=== PATIENT | male | born 1990 | race Caucasian/White ===

== ENCOUNTER 2020-09-09 05:58 | Emergency (ER) | payer MEDICAID ==
[2020-09-10] MEDS ORDERED: NO HOME MEDS (17:32)
== END 2020-09-09 06:32 | disposition left against medical advice (07) ==
LOC: ER 06:00
DX: I10 Essential (primary) hypertension (principal); Z53.21 Procedure and treatment not carried out due to patient leaving prior to being seen by health care provider

== ENCOUNTER 2020-09-10 15:29 | Emergency (ER) | payer MEDICAID ==
[~2020-09-10] VITALS: Ht 180.3 cm; Wt 100.0 kg
[2020-09-10] MEDS ORDERED: diphenhydrAMINE 50 mg/ml inj IM ONE (15:45)
[2020-09-10] MEDS ORDERED: LORazepam 2 mg/ml vial IM ONE (15:45)
[2020-09-10] MEDS ORDERED: OLANZapine **IM** 10 mg inj. IM ONE (15:45)
[2020-09-10] MEDS ORDERED: normal saline 1000ML IV soln IVB ONE (15:45)
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
[2020-09-10 16:44] LABS: BASOPHILS # (AUTO) 0.1 X10'3 (0-0.2); BASOPHILS % (AUTO) 0.8 % (0-1); EOSINOPHILS # (AUTO) 0.1 X10'3 (0-0.9); EOSINOPHILS % (AUTO) 1.5 % (0-6); HEMATOCRIT 37.5 % (42.0-52.0); HEMOGLOBIN 12.7 g/dl (14.0-17.9); LYMPHOCYTES # (AUTO) 1.2 X10'3 (1.1-4.8); LYMPHOCYTES % (AUTO) 11.8 % (21-51); MEAN CORPUSCULAR HEMOGLOBIN 29.8 PG (27.0-31.0); MEAN CORPUSCULAR HGB CONC 33.8 g/dL (33.0-36.5); MEAN CORPUSCULAR VOLUME 87.9 FL (78-98); MEAN PLATELET VOLUME 7.9 FL (7.4-10.4); MONOCYTES # (AUTO) 0.9 X10'3 (0-0.9); MONOCYTES % (AUTO) 9.5 % (2-12); NEUTROPHILS # (AUTO) 7.6 X10'3 (1.8-7.7); NEUTROPHILS % (AUTO) 76.4 % (42-75); PLATELET COUNT 259 X10'3 (140-440); RED BLOOD COUNT 4.26 X10'6 (4.70-6.10); RED CELL DISTRIBUTION WIDTH 13.8 % (11.5-14.5); WHITE BLOOD COUNT 9.9 X10'3 (4.5-11.0)
--- NOTE | 2020-09-10 16:58 | NUR ---
PT IS SLEEPING ON THE GURNEY AFTER GETTING AN IV PLACED FOR FLUID ADMINISTRATION.
[2020-09-10 16:59] LABS: ALANINE AMINOTRANSFERASE 83 U/L (12-78); ALBUMIN 3.5 G/DL (3.4-5.0); ALBUMIN/GLOBULIN RATIO 1.1 (1.1-1.5); ALKALINE PHOSPHATASE 75 IU/L (46-116); ANION GAP 9 (8-16); ASPARTATE AMINO TRANSFERASE 78 U/L (10-37); BILIRUBIN,TOTAL 0.4 MG/DL (0.1-1.0); BLOOD UREA NITROGEN 32 MG/DL (7-18); BUN/CREATININE RATIO 34.4 (5.4-32.0); CALCIUM 8.5 MG/DL (8.5-10.1); CHLORIDE 104 MMOL/L (99-107); CREATININE 0.93 MG/DL (0.60-1.10); ETHANOL < 0.010 GM/DL (0.0-0.010); GLUCOSE 118 MG/DL (70-104); POTASSIUM 3.4 MMOL/L (3.5-5.1); SODIUM 141 MMOL/L (135-145); TOTAL CARBON DIOXIDE 27.7 MMOL/L (24-32); TOTAL PROTEIN 6.6 G/DL (6.4-8.2); eGFR > 90 ML/MIN
--- NOTE | 2020-09-10 17:27 | NUR ---
Pt taken by [facility] from ER 13, to ER overflow bed 26
[2020-09-10] MEDS ORDERED: NO HOME MEDS (17:32)
[2020-09-10 18:52] LABS: URINE AMPHETAMINE SCREEN NEGATIVE (Neg); URINE BARBITUATE SCREEN NEGATIVE (Neg); URINE BENZODIAZEPINES SCREEN NEGATIVE (Neg); URINE CANNABINOID SCREEN NEGATIVE (Neg); URINE COCAINE SCREEN NEGATIVE (Neg); URINE METHADONE SCREEN NEGATIVE (Neg); URINE OPIATE SCREEN NEGATIVE (Neg); URINE PHENCYCLIDINE SCREEN NEGATIVE (Neg)
[2020-09-10 18:55] LABS: CLARITY,URINE CLEAR (Clear); COLOR,URINE YELLOW (Yellow); GLUCOSE, URINE NEGATIVE (Neg); KETONES,URINE 15 mg/dl (Neg); LEUKOCYTE ESTERASE ,URINE NEGATIVE (Neg); NITRITES, URINE NEGATIVE (Neg); OCCULT BLOOD,URINE NEGATIVE (Neg); PROTEIN,URINE NEGATIVE (Neg); UROBILINOGEN,URINE 0.2 E.U/dL (0.2-1.0)
[2020-09-10 18:57] LABS: UA COLLECTION TYPE CLN CATCH MIDSTREAM
--- NOTE | 2020-09-10 19:00 | NUR ---
pt is sleeping, no s/s of distress noted. rr unlabored.
--- NOTE | 2020-09-10 20:38 | NUR ---
pt is restless in bed, no distress noted.
--- NOTE | 2020-09-10 21:08 | NUR ---
pt is sleeping, no s/s of distress noted, rr unlabored.
--- NOTE | 2020-09-11 00:26 | NUR ---
pt is sleeping, no s/s of distress noted. rr unlabored.
--- NOTE | 2020-09-11 01:51 | NUR ---
pt continues to sleep, no s/s of distress noted.
--- NOTE | 2020-09-11 04:00 | NUR ---
pt awoke, confused, making nonsensical statements. pt is stating that he is actually Pardeep. Pt ripped his iv out partially, remaining piece removed. Pt became intrusive with staff, friendly but only mildly cooperative.
--- NOTE | 2020-09-11 05:01 | NUR ---
pt is sleeping, rr unlabored, no s/s of distress noted.
--- NOTE | 2020-09-11 07:34 | NUR ---
Pt sleeping. Resp even and unlabored.
--- NOTE | 2020-09-11 08:22 | NUR ---
Pt was given breakfast tray but states he will wait to eat it. He thanked staff
--- NOTE | 2020-09-11 08:40 | NUR ---
Pt awake and eats breakfast. He displays erratic behavior, continues to state "annel rah", he holds papers on his head stating he "is trying to make a face mask". He is singing in his room and other pts ask him to stop as they are trying to sleep.
--- NOTE | 2020-09-11 08:40 | NUR ---
CONTACT INFO FOR BROTHER AND DAD KASHIF WAGNER ( BROTHER) [phone] VICKY WAGNER ( DAD) [phone]
[2020-09-11] MEDS ORDERED: LORazepam 1 MG tablet PO ONE (09:45)
[2020-09-11] MEDS ORDERED: risperiDONE 2mg tablet PO ONE (09:47)
--- NOTE | 2020-09-11 10:18 | NUR ---
Pt stood on bedside table and jumped off. RN asked pt to please not do this and explained the danger. RN requested meds from MD. Pt given Ativan and Risperdone per order.
--- NOTE | 2020-09-11 10:20 | NUR ---
Pt went to bathroom and tech realised pt was playing with feces in toilet. Tech assisted pt to clean up and back to bed
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
--- NOTE | 2020-09-11 10:33 | NUR ---
pt tried again to run out
[2020-09-11] MEDS ORDERED: haloperidol lactate 5mg/ml inj IM ONE ×3 (10:40→19:40)
--- NOTE | 2020-09-11 10:40 | NUR ---
CHILD BEDSIDE EVALUATING PT DUE TO INCREASED ELOPEMENT ATTEMPTS
--- NOTE | 2020-09-11 10:53 | NUR ---
Order received from MD and pt given Haldol IM per RN
--- NOTE | 2020-09-11 12:57 | NUR ---
Lunch served at bedside. Pt sleeping, resp unlabored, even. Pt wakes up and eating lunch
--- NOTE | 2020-09-11 13:42 | NUR ---
[facility] here to eval pt
--- NOTE | 2020-09-11 14:01 | NUR ---
[facility] PATIENT DELUSIONAL AND UNABLE TO FORMULATE SAFETY PLAN OR HOW TO OBTAIN FOOD PER CECILE
--- NOTE | 2020-09-11 14:32 | NUR ---
Pt sleeping, resp even, unlabored.
--- NOTE | 2020-09-11 17:07 | NUR ---
Pt sleeping, resp even unlabored
--- NOTE | 2020-09-11 18:20 | NUR ---
Pt agitated, yelling, attempting to elope. Stopped by techs, security called over and assisted patient to his bed. Pt continued to be agitated, order recieved for chemical restraint, given with security on standby.
[2020-09-11] MEDS ORDERED: LORazepam 2 mg/ml vial IM ONE ×2 (18:25→19:40)
[2020-09-11] MEDS ORDERED: diphenhydrAMINE 50 mg/ml inj IM ONE ×2 (18:25→19:40)
--- NOTE | 2020-09-11 18:41 | NUR ---
Security remains at standy due to pt attempting to leave and being resistive to redirection. Security assisted pt back to bed, pt states he will "be good". Pt is making comments to staff like "can that girl be my security?" and "I love you" to the female staff.
--- NOTE | 2020-09-11 18:53 | NUR ---
Pt keeps trying to reach for security incident handler's pepper spray. He had been redirected once to not do this, but pt was not listening, and attempted to reach for the rn security's spray again. Orders obtaibned and pt restrained at 1855.
--- NOTE | 2020-09-11 19:29 | NUR ---
Patient is in four point restraints. He remains delusional. Patient reaches out to grab arms of staff. Good CSM's all extremities. Patient is beginning to calm somewhat. Patient is visable from nursing station.
--- NOTE | 2020-09-11 20:06 | NUR ---
Patient continues to resist against restraints. Ativan, Benadryl, and Haldol has been repeated IM. MYKE Kohli
--- NOTE | 2020-09-11 20:12 | NUR ---
Patient continues to yell and resist against restraints. He can be temporarily redirected.
--- NOTE | 2020-09-11 20:45 | NUR ---
Restraints removed. Patient is cooperative. He is ambulated to the bathroom with an ataxic gait. This patient accompanied patient to prevent fall. Patient voided and then was assisted back to bed.
--- NOTE | 2020-09-11 21:21 | NUR ---
Patient is sleeping quietly, low fowlers position in bed. Two rails up, bed in low position. In direct view from nurses station.
--- NOTE | 2020-09-12 02:53 | NUR ---
Patient is up to bathroom. Gait is slightlyl ataxic. After voiding patient returns to bed.
[2020-09-12] MEDS: olanzapine 10mg tablet PO SCH (07:54)
[2020-09-12] MEDS: LORazepam 1 MG tablet PO PRN (07:54)
[2020-09-12] MEDS ORDERED: haloperidol lactate 5mg/ml inj IM ONE ×2 (11:15→21:15)
[2020-09-12] MEDS ORDERED: diphenhydrAMINE 50 mg/ml inj IM ONE ×2 (11:15→21:15)
[2020-09-12] MEDS ORDERED: LORazepam 2 mg/ml vial IM ONE ×2 (11:15→21:15)
--- NOTE | 2020-09-12 11:50 | NUR ---
Break RN, Pt got out of bed and walked out of the unit toward the Main ED. This RN told Pt to stop multiple times and Pt increased his speed. ED Techs and security responded and escorted Pt back to his bed.
--- NOTE | 2020-09-12 14:47 | NUR ---
Resting on back with eyes closed, respirations normal
--- NOTE | 2020-09-12 17:34 | NUR ---
Persistently up and down out of bed, redirects back to bed but has had mulitple attempts to run requiring security to get back
--- NOTE | 2020-09-12 19:02 | NUR ---
Patient is up out of bed multible times following shift change. He makes sexual ovatures towards a female tech. Patient is redirected and told remarks are not tollerated.
--- NOTE | 2020-09-12 20:13 | NUR ---
Patients bad behavior escelates. He postures against security and staff. Patient is not redirecting well.
--- NOTE | 2020-09-12 21:38 | NUR ---
Patient was given Benadryl 50 mg, Ativan 2 mg, Haldol 10 mg, all administered IM.
--- NOTE | 2020-09-12 22:03 | NUR ---
Patient is continuing to exhibit delusional behavior. He does not redirect well, patient reaches out to grab female nurses. He is somewhat agressive toward security at bedside. This sign writer hand will consult with ER MD for additional medications.
[2020-09-12] MEDS ORDERED: MIDAZolam 5mg/ml 2ml vial IM ONE (22:10)
--- NOTE | 2020-09-12 23:05 | NUR ---
Patient is starting to sleep now. He had received Versed 5 mg IM, he tollerated it well.
--- NOTE | 2020-09-13 03:07 | NUR ---
Patient sleeping on his right side. No distress. In view from the nursing startion.
--- NOTE | 2020-09-13 05:18 | NUR ---
Pt appears to be sleeping, layong on right side, no signs of distress, RR 14
--- NOTE | 2020-09-13 07:00 | NUR ---
pt is walking around. pt has attempted to walk out of the unit a few times.
[2020-09-13] MEDS: olanzapine 10mg tablet PO SCH (07:03)
[2020-09-13] MEDS: LORazepam 1 MG tablet PO PRN ×2 (07:05→14:42)
--- NOTE | 2020-09-13 08:00 | NUR ---
pt is up walking around. asking the same questions over and over. keeps trying to walk out of the unit
[2020-09-13] MEDS ORDERED: LORazepam 2 mg/ml vial IM ONE ×2 (08:10→14:55)
[2020-09-13] MEDS ORDERED: haloperidol lactate 5mg/ml inj IM ONE ×2 (08:10→14:55)
[2020-09-13] MEDS ORDERED: diphenhydrAMINE 50 mg/ml inj IM ONE ×2 (08:10→14:55)
--- NOTE | 2020-09-13 09:00 | NUR ---
PT IS WALKING AROUND. MAKING NO SENSE. SINGINGS
--- NOTE | 2020-09-13 10:00 | NUR ---
PT IS TRYING TO LEAVE UNIT. PT IS TAKING NON-SENSE
--- NOTE | 2020-09-13 11:00 | NUR ---
PT IS WALKING AROUND. PT IS TALKING AND SINGING.
--- NOTE | 2020-09-13 12:00 | NUR ---
PT IS BEING VERY UNCOOPERATIVE. NON-VIOLENT. PT IS REDIRECTABLE. IS NON-STOP PUSHING LIMITS
--- NOTE | 2020-09-13 13:00 | NUR ---
PT IS TALKING WITH STAFF AND OTHER PATIENTS.
--- NOTE | 2020-09-13 14:00 | NUR ---
PT IS WALKING AROUND. PT TRIED TO LEAVE THE UNIT
--- NOTE | 2020-09-13 15:00 | NUR ---
PT IS WALKING AROUND. PT TRIED TO LEAVE UNIT
--- NOTE | 2020-09-13 16:00 | NUR ---
pt is up and down non-stop. talking non-sense. dr murrell ordered meds
[2020-09-13] MEDS: divalproex sodium 500mg tablet.DR PO SCH ×2 (17:03→20:11)
[2020-09-13] MEDS: mirtazapine 15mg tablet PO SCH ×2 (17:04→20:11)
--- NOTE | 2020-09-13 17:30 | NUR ---
pt attempted to eat his ear plug. he spit them out
--- NOTE | 2020-09-13 19:48 | NUR ---
Pt up on unit restless at start of shift. Aproached nurse station several times with mutiple requests. Asking to be discharged. At times saying he was suposed to met someone or he had something he had to do. Easily redircted by being told he would be spending the night here. Pt maloderous cleaned self with bath wipes. Laying down in bed at this time.
[2020-09-13] MEDS ORDERED: hydrOXYzine 25 MG tablet PO ONE (20:00)
[2020-09-13] MEDS ORDERED: risperiDONE 2mg tablet PO ONE (20:00)
[2020-09-13] MEDS ORDERED: divalproex sodium 500mg tablet.DR PO SCH (21:00)
[2020-09-13] MEDS ORDERED: mirtazapine 15mg tablet PO SCH (21:00)
--- NOTE | 2020-09-13 21:24 | NUR ---
Pt fell asleep for awhile. Woke up for medications had trouble getting back to sleep, restless, kept getting up gait unsteady. Pt is easily redirectable to stay in bed. Staff sitting close at this time to remind pt to stay in bed.
--- NOTE | 2020-09-13 21:50 | NUR ---
Pt continues to be restless. Easily redirected back to bed. Pt confused talked about needing to check on his brothers alarm. Ambulated independantly to BR.
--- NOTE | 2020-09-13 23:46 | NUR ---
Pt is sleeping at least an hour without waking or any periods of restlessness.
--- NOTE | 2020-09-14 02:00 | NUR ---
Pt sleeping without interuption.
--- NOTE | 2020-09-14 02:30 | NUR ---
Pt ambulated independantly to BR back to bed went back to sleep.
--- NOTE | 2020-09-14 07:00 | NUR ---
pt is sleeping. he woke up twice and ambulated to the bathroom
[2020-09-14] MEDS ORDERED: LORazepam 2 mg/ml vial IM ONE (07:55)
[2020-09-14] MEDS ORDERED: haloperidol lactate 5mg/ml inj IM ONE (07:55)
[2020-09-14] MEDS ORDERED: diphenhydrAMINE 50 mg/ml inj IM ONE (07:55)
[2020-09-14] MEDS: LORazepam 1 MG tablet PO PRN ×2 (08:03→14:51)
[2020-09-14] MEDS: olanzapine 10mg tablet PO SCH ×3 (08:03→20:23)
[2020-09-14] MEDS: divalproex sodium 500mg tablet.DR PO SCH ×2 (08:04→20:23)
--- NOTE | 2020-09-14 10:07 | NUR ---
Breaking primary RN, pt is up, walking to the bathrrom with his eyes closed, reminded that he needs to open them so that he doesn't fall
--- NOTE | 2020-09-14 11:00 | NUR ---
pt is awake. he talks non-sense
--- NOTE | 2020-09-14 12:00 | NUR ---
pt is awake. he is directable.
--- NOTE | 2020-09-14 13:00 | NUR ---
pt is awake. he will go back to his bed when asked
--- NOTE | 2020-09-14 14:03 | NUR ---
pt is wake. no concerns
--- NOTE | 2020-09-14 15:00 | NUR ---
pt is sleeping
--- NOTE | 2020-09-14 16:00 | NUR ---
pt is sleeping
--- NOTE | 2020-09-14 17:00 | NUR ---
pt is sleeping
[2020-09-14 17:50] VITALS: BP 140/87
[2020-09-14] MEDS: mirtazapine 15mg tablet PO SCH (20:23)
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
[2020-09-14] MEDS ORDERED: diphenhydrAMINE 25mg capsule PO ONE (21:25)
[2020-09-14] MEDS ORDERED: LORazepam 1 MG tablet PO ONE (21:25)
--- NOTE | 2020-09-14 22:38 | NUR ---
Pt was escorted to shower by tamia and two security officers. Pt was observed to smell extremely foul and tamia observed a formed BM in shower, once shower was complete. Pt is now resting comfortably in bed.
--- NOTE | 2020-09-15 00:39 | NUR ---
PT CONTINUES TO ATTEMPT TO GET OUT OF BED. STATES MULTIPLE DIFFERENT REASONS: "I NEED TO LEAVE." "I NEED TO GET MY BOOTS" "I NEED TO CALL MY BROTHER." PT REDIRECTED BACK TO BED MULTIPLE TIMES. PT CONTINUES TO SING AND YELL "CLARISA-RAH." PT ASKED TO STOP THESE BEHAVIORS AND IS OCCASIONALLY COMPLIANT. MEKA RIZZO MADE AWARE OF PT BEHAVIORS.
[2020-09-15] MEDS ORDERED: LORazepam 1 MG tablet PO ONE (01:05)
[2020-09-15] MEDS: LORazepam 1 MG tablet PO PRN (02:23)
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
[2020-09-15] MEDS: olanzapine 10mg tablet PO SCH ×2 (07:29→13:11)
[2020-09-15] MEDS: divalproex sodium 500mg tablet.DR PO SCH (07:30)
--- NOTE | 2020-09-15 07:30 | NUR ---
Pt. took medications, pt. continues to attempt to defend staff from another male peer and needs verbal redirection. pt. responds to redirection. Pt. states, "I'm just doing my duty, I'm a recruter."
--- NOTE | 2020-09-15 08:00 | NUR ---
RN received phone call from [facility]. RN informed that pt. is being considered for admission to [facility].
--- NOTE | 2020-09-15 08:53 | NUR ---
sent RN on a 15min break the patient was asleep laying on his right side, his respirations appeared normal and was not in any distress at this time.
--- NOTE | 2020-09-15 09:30 | NUR ---
1:1 interview done at bedside. Pt. denies SI/HI, A/V hallucinations. When asked what brought pt. to the hospital, pt. went on tangential, d/o story regarding buying cars for his grandma. Pt. reports being hospitalized in 2012 a [facility] [facility]. Pt. states, "I was going through a difficult time". During interview, pt. attempts to stand up and sabrina RN. Pt. informed not to and followed instruction. Pt. chelsea RN. Pt. states, "Kenia Sir!".
--- NOTE | 2020-09-15 10:00 | NUR ---
Pt. watching TV with peers. Pt. becomes defensive when another pt. verbally provokes and harasses him. Pt. needs to be reminded not to verbally engage with peer.
--- NOTE | 2020-09-15 12:00 | NUR ---
Pt. laying in bed awake in supine position. Pt. is calm. RN informed that pt. will be accepted to [facility] after lunch.
--- NOTE | 2020-09-15 13:35 | NUR ---
Pt. transfered to [facility]. Pt. escorted with [facility] tech and security expert. All belongings sent with pt.
[2020-09-15] MEDS ORDERED: MIRT-116 PO (14:48)
[2020-09-15] MEDS ORDERED: OLAN10TA3 PO (14:48)
[2020-09-15] MEDS ORDERED: DIVA-76 PO ×2 (14:48)
== END 2020-09-15 13:30 ==
LOC: ER 15:29
DX: F91.9 Conduct disorder, unspecified (principal); R41.82 Altered mental status, unspecified; Z60.2 Problems related to living alone; Z20.828 Contact with and (suspected) exposure to other viral communicable diseases
CPT/HCPCS: 36415; 80053; 80164; 80305; 80320; 81003; 85025; 87635; 96360; 96361; 96372; 99291; C9803; J1200; J1630; J2060; J3490; J7030

== ENCOUNTER 2020-10-05 10:12 | Emergency (ER) | payer MEDICAID ==
[~2020-10-05] VITALS: Ht 177.8 cm; Wt 100.0 kg
[~2020-10-05 10:12] MED LIST: DIVA-76 PO; DIVA250T4 PO; OLAN10TA19 PO; TRAZ-251 PO
[2020-10-05] MEDS ORDERED: OLANZapine 2.5MG tablet PO STA (10:21)
--- NOTE | 2020-10-05 10:30 | NUR ---
Pt undirectable and unable to follow direction. [facility] officers assisted getting pt changed into hospital attire and 4 point restraints applied. Provider Lam DESOUZA updated and orders being placed.
[2020-10-05] MEDS ORDERED: haloperidol lactate 5mg/ml inj IM ONE (10:35)
[2020-10-05] MEDS ORDERED: diphenhydrAMINE 50 mg/ml inj IM ONE (10:35)
[2020-10-05] MEDS ORDERED: LORazepam 2 mg/ml vial IM ONE (10:35)
--- NOTE | 2020-10-05 10:51 | NUR ---
Report off to MICHAELA Varghese and RN medicating pt.
[2020-10-05] MEDS ORDERED: haloperidol lactate 5mg/ml inj ONE ×2 (10:56→11:45)
--- NOTE | 2020-10-05 11:09 | NUR ---
Received pt in 4 pt restraints yelling uncontrollably. Medicated pt with Haldol 5, Ativan 2 mg and Benadryl 50 mg. Patient is now resting with lights dimmed. VSS.
[2020-10-05 11:40] LABS: BASOPHILS % (AUTO) 0.2 % (0-1); EOSINOPHILS % (AUTO) 0.3 % (0-6); HEMATOCRIT 43.9 % (42.0-52.0); HEMOGLOBIN 14.4 g/dl (14.0-17.9); LYMPHOCYTES # (AUTO) 1.3 X10'3 (1.1-4.8); LYMPHOCYTES % (AUTO) 10.2 % (21-51); MEAN CORPUSCULAR HEMOGLOBIN 28.4 PG (27.0-31.0); MEAN CORPUSCULAR HGB CONC 32.9 g/dL (33.0-36.5); MEAN CORPUSCULAR VOLUME 86.3 FL (78-98); MEAN PLATELET VOLUME 8.9 FL (7.4-10.4); MONOCYTES # (AUTO) 1.4 X10'3 (0-0.9); MONOCYTES % (AUTO) 11.4 % (2-12); NEUTROPHILS # (AUTO) 9.5 X10'3 (1.8-7.7); NEUTROPHILS % (AUTO) 77.9 % (42-75); PLATELET COUNT 243 X10'3 (140-440); RED BLOOD COUNT 5.08 X10'6 (4.70-6.10); RED CELL DISTRIBUTION WIDTH 13.5 % (11.5-14.5); WHITE BLOOD COUNT 12.2 X10'3 (4.5-11.0)
[2020-10-05 11:52] LABS: ALANINE AMINOTRANSFERASE 41 U/L (12-78); ALBUMIN 4.1 G/DL (3.4-5.0); ALBUMIN/GLOBULIN RATIO 1.1 (1.1-1.5); ALKALINE PHOSPHATASE 71 IU/L (46-116); ANION GAP 14 (8-16); ASPARTATE AMINO TRANSFERASE 43 U/L (10-37); BILIRUBIN,TOTAL 0.6 MG/DL (0.1-1.0); BLOOD UREA NITROGEN 33 MG/DL (7-18); BUN/CREATININE RATIO 35.5 (5.4-32.0); CALCIUM 8.4 MG/DL (8.5-10.1); CHLORIDE 106 MMOL/L (99-107); CREATININE 0.93 MG/DL (0.60-1.10); ETHANOL < 0.010 GM/DL (0.0-0.010); GLUCOSE 108 MG/DL (70-104); POTASSIUM 3.6 MMOL/L (3.5-5.1); SODIUM 143 MMOL/L (135-145); TOTAL CARBON DIOXIDE 23.1 MMOL/L (24-32); TOTAL PROTEIN 7.9 G/DL (6.4-8.2); eGFR > 90 ML/MIN
--- NOTE | 2020-10-05 13:42 | NUR ---
Patient is sleeping on his left side. Respirations are even and nonlabored.
--- NOTE | 2020-10-05 15:20 | NUR ---
Patient laying in bed sleeping. Warm blankets applied. Respirations are even and nonlabored.
[2020-10-05] MEDS ORDERED: OLAN5TAB5 PO (16:32)
[2020-10-05] MEDS ORDERED: DIVA-74 PO (16:32)
[2020-10-05] MEDS ORDERED: TRAZ-251 PO (16:32)
[2020-10-05] MEDS ORDERED: DIVA-76 PO (16:32)
--- NOTE | 2020-10-05 16:45 | NUR ---
Patient laying on left side sleeping. Respirations are even and nonlabored. Will continue to monitor.
[2020-10-05 18:42] LABS: URINE AMPHETAMINE SCREEN NEGATIVE (Neg); URINE BARBITUATE SCREEN NEGATIVE (Neg); URINE BENZODIAZEPINES SCREEN NEGATIVE (Neg); URINE CANNABINOID SCREEN NEGATIVE (Neg); URINE COCAINE SCREEN NEGATIVE (Neg); URINE METHADONE SCREEN NEGATIVE (Neg); URINE OPIATE SCREEN NEGATIVE (Neg); URINE PHENCYCLIDINE SCREEN NEGATIVE (Neg)
[2020-10-05] MEDS: divalproex sodium 500mg tablet.DR PO SCH (20:10)
[2020-10-05] MEDS: OLANZapine 5mg rapidly disint. tablet PO SCH (20:10)
[2020-10-05] MEDS: divalproex 250mg tablet, delayed-release PO SCH (20:10)
[2020-10-05] MEDS ORDERED: traZODone 50mg tablet PO SCH (21:00)
--- NOTE | 2020-10-05 21:28 | NUR ---
PT PACKET FAXED TO [facility]
--- NOTE | 2020-10-05 22:28 | NUR ---
Pt resting comfortably in bed, RR even and unlabored
--- NOTE | 2020-10-06 00:42 | NUR ---
Pt. resting quietly in bed, respirations even and unlabored, no apparent signs of distress.
--- NOTE | 2020-10-06 06:27 | NUR ---
RCVD REPORT FROM MICHAELA RAMIREZ, PT IS SUPINE IN BED, EYES CLOSED, ASLEEP, REGULAR BREATHING OBSERVED, NO NEEDS AT THIS TIME
[2020-10-06] MEDS: divalproex 250mg tablet, delayed-release PO SCH ×2 (08:18→21:18)
[2020-10-06] MEDS: OLANZapine 5mg rapidly disint. tablet PO SCH ×3 (08:18→21:19)
[2020-10-06] MEDS: divalproex sodium 500mg tablet.DR PO SCH ×2 (08:18→21:18)
--- NOTE | 2020-10-06 08:35 | NUR ---
PT JUST FINISHED BREAKFAST, ACCEPTING OF MEDICATIONS, NOW PACING AROUND, NO OTHER NEEDS AT THIS TIME, HE IS BOISTEROUS, VERY FRIENDLY
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
--- NOTE | 2020-10-06 09:30 | NUR ---
pt is back and forth to the nurses renetta, requesting phone, getting agitated by pt is 22
--- NOTE | 2020-10-06 10:51 | NUR ---
pt is resting in bed, no needs at this time
--- NOTE | 2020-10-06 11:11 | NUR ---
PHONE NUMBERS FOR PT: AMANDA (VICKY): [phone] KASHIF (BROTHER): [phone] CAREN (GRANDPA): [phone] DONNA (FRIEND): [phone]
--- NOTE | 2020-10-06 11:46 | NUR ---
pt is supine in bed, asleep, no needs at this time
--- NOTE | 2020-10-06 12:45 | NUR ---
pt is on the phone with his dad, no needs at this time
--- NOTE | 2020-10-06 13:45 | NUR ---
pt is in bed, calm, no needs at this time
--- NOTE | 2020-10-06 14:48 | NUR ---
pt is supine in bed at this time, no needs, calm
[2020-10-06] MEDS ORDERED: ibuprofen tablet 400 MG TABLET PO ONE (15:35)
--- NOTE | 2020-10-06 15:44 | NUR ---
pt isup and to the nurses station and back to his bed repeatedly, in other pts rooms, no needs at this time
[2020-10-06] MEDS: LORazepam 1 MG tablet PO PRN (16:38)
--- NOTE | 2020-10-06 16:40 | NUR ---
pt getting more amplified, req medication, obtained order for Ativan, pt accepting of care
--- NOTE | 2020-10-06 16:55 | NUR ---
pt still pacing
--- NOTE | 2020-10-06 17:45 | NUR ---
pt is in the bathroom, no needs at this time
--- NOTE | 2020-10-06 20:30 | NUR ---
FOREIGN STUDENT ADVISER VONDA ASKED ME TO ASSIST, LISA IS PRIMARY RN
[2020-10-06] MEDS ORDERED: diphenhydrAMINE 25mg capsule PO ONE (20:55)
[2020-10-06] MEDS: traZODone 50mg tablet PO SCH (21:18)
[2020-10-07] MEDS: LORazepam 1 MG tablet PO PRN ×2 (05:25→19:52)
--- NOTE | 2020-10-07 06:31 | NUR ---
rcvd report from MICHAELA Martin, pt was moved from room 8 in main ED to room 25 in overflow by tech, no needs at this time
[2020-10-07] MEDS ORDERED: haloperidol lactate 5mg/ml inj IM ONE (06:50)
[2020-10-07] MEDS ORDERED: quetiapine 100mg tablet PO SCH (08:00)
--- NOTE | 2020-10-07 08:45 | NUR ---
PT IS WALKING AROUND STILL TRYING TO BE MANIC AFTER MEDICATIONS, APPEARS WORN OUT, STATES HE IS GOING TO BED
[2020-10-07] MEDS: OLANZapine 5mg rapidly disint. tablet PO SCH ×3 (08:59→19:53)
[2020-10-07] MEDS: divalproex 250mg tablet, delayed-release PO SCH ×2 (08:59→19:53)
[2020-10-07] MEDS: divalproex sodium 500mg tablet.DR PO SCH ×2 (08:59→19:52)
--- NOTE | 2020-10-07 09:55 | NUR ---
PT IS SUPINE IN BED, EYES CLOSED, REGULAR BREATHING PRESENT, NO NEEDS AT THIS TIME
--- NOTE | 2020-10-07 11:44 | NUR ---
PT SUPINE IN BED, EYES CLOSED, REGULAR BREATHING PRESENT, NO NEEDS AT THIS TIME
--- NOTE | 2020-10-07 12:40 | NUR ---
PT IS RESTING IN BED, NO NEEDS AT THIS TIME
--- NOTE | 2020-10-07 13:27 | NUR ---
PT AT NURSING STATION ASKNG FOR A SNACK. PT JUST ATE 100% OF LUNCH. PT GIVEN A BANANA AND A SANDWICH FOR SNACK.
--- NOTE | 2020-10-07 14:42 | NUR ---
PT IS PACING, BARELY AWAKE, SENT BACK TO HIS BED FOR SAFETY
[2020-10-07] MEDS ORDERED: QUET200T PO (15:04)
--- NOTE | 2020-10-07 15:45 | NUR ---
pt is sleeping, no needs at this time
--- NOTE | 2020-10-07 16:45 | NUR ---
pt supine in bed, sleeping, regular breathing present, no needs at this time
--- NOTE | 2020-10-07 19:23 | NUR ---
The patient has been pleasant but restless. He has been intrussive with others. He accepts redirection. He has been accepted at [facility].
[2020-10-07] MEDS: traZODone 50mg tablet PO SCH (19:54)
[2020-10-07 20:29] VITALS: BP 114/72
== END 2020-10-07 20:32 ==
LOC: ER 10:12
DX: F29 Unspecified psychosis not due to a substance or known physiological condition (principal); F31.9 Bipolar disorder, unspecified; Z20.822 Contact with and (suspected) exposure to COVID-19; Z79.899 Other long term (current) drug therapy
CPT/HCPCS: 36415; 80053; 80305; 80320; 85025; 87426; 96372; 99285; J1200; J1630; J2060; Q0163

== ENCOUNTER 2024-09-10 06:27 | Emergency (ER) | payer MEDICAID ==
[~2024-09-10] VITALS: Ht 177.8 cm; Wt 110.9 kg
[~2024-09-10 06:27] MED LIST changes: -DIVA-76 PO; -DIVA250T4 PO; +LITH300T5 PO; -OLAN10TA19 PO; +OLAN5TAB75 PO; -TRAZ-251 PO; +TRAZ-256 PO
[2024-09-10 06:50] VITALS: BP 140/75; PULSE 86; RESP 18; O2SAT 98
[2024-09-10] MEDS ORDERED: LITH300C PO (07:21)
[2024-09-10] MEDS ORDERED: OLAN15TA97 PO (07:21)
[2024-09-10] MEDS ORDERED: DIVA500T9 PO (07:21)
[2024-09-10] MEDS ORDERED: TRAZ-256 PO (07:31)
[2024-09-10 07:41] LABS: BASOPHILS % (AUTO) 0.5 % (0-1); EOSINOPHILS # (AUTO) 0.1 X10'3 (0-0.9); HEMATOCRIT 41.9 % (42.0-52.0); HEMOGLOBIN 14.5 g/dl (14.0-17.9); LYMPHOCYTES # (AUTO) 0.9 X10'3 (1.1-4.8); LYMPHOCYTES % (AUTO) 9.3 % (21-51); MEAN CORPUSCULAR HEMOGLOBIN 29.6 PG (27.0-31.0); MEAN CORPUSCULAR HGB CONC 34.6 g/dL (33.0-36.5); MEAN CORPUSCULAR VOLUME 85.5 FL (78-98); MEAN PLATELET VOLUME 8.3 FL (7.4-10.4); MONOCYTES % (AUTO) 10.2 % (2-12); NEUTROPHILS # (AUTO) 7.8 X10'3 (1.8-7.7); PLATELET COUNT 297 X10'3 (140-440); RED CELL DISTRIBUTION WIDTH 13.9 % (11.5-14.5); WHITE BLOOD COUNT 9.9 X10'3 (4.5-11.0)
[2024-09-10 07:51] LABS: ALBUMIN 3.8 G/DL (3.4-5.0); ANION GAP 11 (8-16); BLOOD UREA NITROGEN 27 MG/DL (7-18); CHLORIDE 103 MMOL/L (99-107); CREATININE 0.93 MG/DL (0.60-1.10); ETHANOL < 10 MG/DL (<10); GLUCOSE 191 MG/DL (70-104); POTASSIUM 3.7 MMOL/L (3.5-5.1); SODIUM 138 MMOL/L (135-145); THYROID STIMULATING HORMONE 2.02 ulU/ml (0.34-4.50); TOTAL CARBON DIOXIDE 24.3 MMOL/L (24-32); eCRCL 114 ML/MIN; eGFR > 90 ML/MIN
[2024-09-10 07:52] LABS: URINE AMPHETAMINE SCREEN NEGATIVE (Neg); URINE BARBITUATE SCREEN NEGATIVE (Neg); URINE BENZODIAZEPINES SCREEN NEGATIVE (Neg); URINE COCAINE SCREEN NEGATIVE (Neg); URINE METHADONE SCREEN NEGATIVE (Neg)
[2024-09-10 07:53] LABS: URINE CANNABINOID SCREEN NEGATIVE (Neg); URINE OPIATE SCREEN NEGATIVE (Neg); URINE PHENCYCLIDINE SCREEN NEGATIVE (Neg)
[2024-09-10 07:57] LABS: BILIRUBIN,URINE NEGATIVE (Neg); CLARITY,URINE CLEAR (Clear); COLOR,URINE YELLOW (Yellow); GLUCOSE, URINE NEGATIVE (Neg); KETONES,URINE TRACE mg/dl (Neg); LEUKOCYTE ESTERASE ,URINE NEGATIVE (Neg); NITRITES, URINE NEGATIVE (Neg); OCCULT BLOOD,URINE NEGATIVE (Neg); PROTEIN,URINE NEGATIVE (Neg); UROBILINOGEN,URINE 0.2 E.U/dL (0.2-1.0)
[2024-09-10 08:04] LABS: UA COLLECTION TYPE CLN CATCH MIDSTREAM
[2024-09-10 09:14] LABS: VALPROATE 66 UG/ML (50-100)
[2024-09-10] MEDS: OLANZapine **IM** 10 mg inj. IM ONE (09:14)
[2024-09-10] MEDS: LORazepam 2 mg/ml vial IM ONE (09:14)
[2024-09-10] MEDS: diphenhydrAMINE 50 mg/ml inj IM ONE (09:14)
[2024-09-10 15:15] LABS: ALANINE AMINOTRANSFERASE 125 U/L (12-78); ALKALINE PHOSPHATASE 74 IU/L (46-116); ASPARTATE AMINO TRANSFERASE 149 U/L (10-37); BILIRUBIN,DIRECT 0.1 MG/DL (0-0.3); BILIRUBIN,TOTAL 0.3 MG/DL (0.1-1.0); TOTAL PROTEIN 7.6 G/DL (6.4-8.2)
[2024-09-10] MEDS: traZODone 50mg tablet PO SCH (19:24)
[2024-09-10] MEDS: lithium carbonate 150mg capsule PO SCH (19:25)
[2024-09-10] MEDS: OLANZAPINE 5 MG TABLET PO SCH (19:25)
[2024-09-10] MEDS: divalproex sod 250mg ER (24-hour) tablet PO SCH (19:25)
[2024-09-10 19:56] VITALS: TEMP 98.7
== END 2024-09-10 19:58 ==
LOC: ER 06:28
DX: F25.9 Schizoaffective disorder, unspecified (principal); F29 Unspecified psychosis not due to a substance or known physiological condition; F31.9 Bipolar disorder, unspecified; Z20.822 Contact with and (suspected) exposure to COVID-19
CPT/HCPCS: 36415; 80048; 80076; 80164; 80305; 80320; 81003; 84443; 85025; 87811; 96372; 99285; J1200; J2060; J3490